=== PATIENT | female | born 2000 | race Caucasian/White ===

== ENCOUNTER 2022-08-19 02:24 | Emergency (ER) | payer BC ==
[~2022-08-19] VITALS: Ht 182.9 cm; Wt 61.2 kg
--- NOTE | 2022-08-19 03:32 | NUR ---
BIBF WITH CC OF SYNCOPAL EPISODE LAST FOR 1 MIN, FRIEND SAID THAT PATIENT MIGHT HAVE SEIZURE. PATIENT IS AAOX4. ABLE TO MAKE NEEDS KNOWN. CLAIMED THAT SHE TOOK MUSHROOMS AT AROUND 8PM AND PER FRIEND +LOC AT 2AM LASTED 1MIN, FRIEND SAID THAT PATIENT MIGHT HAVE SEIZURE. PATIENT FELL BACKWARD AND HIT BACKSIDE OF HEAD IN THE BASIN. NO PAST HX OF SEIZURE. PATIENT CANNOT REMEMBER ANYTHING THAT HAPPENED EXCEPT THAT SHE FELT DIZZY. -SOB, NOT IN CP DISTRESS. PLACED COMFORTABLY IN BED. VITALS CHECKED.
--- NOTE | 2022-08-19 03:35 | NUR ---
URINE SPECIMEN SENT TO LAB
--- NOTE | 2022-08-19 03:45 | NUR ---
ACCUCHECK DONE BS OF 61mg/dl. juice offered
--- NOTE | 2022-08-19 03:50 | NUR ---
EKG DONE, STRIP ATTACHED TO CHART
--- NOTE | 2022-08-19 04:17 | NUR ---
PT SIGNED DISCLAIMER THAT SHE IS NOT AND ON CONTROL PILLS. WILL FF RADIOLOGY FOR CT SCAN
[2022-08-19 06:34] LABS: BASOPHILS % (AUTO) 0.4 % (0.0-2.0); EOSINOPHILS % (AUTO) 0.7 % (0.0-6.0); HEMATOCRIT 38 % (33-45); HEMOGLOBIN 12.9 g/dL (11.5-14.8); LYMPHOCYTES # (AUTO) 1.3 K/uL (0.8-4.8); LYMPHOCYTES % (AUTO) 15.6 % (20.0-44.0); MEAN CORPUSCULAR HGB CONC 34 g/dl (31.0-36.0); MEAN CORPUSCULAR VOLUME 87 fL (82-100); MONOCYTES # (AUTO) 0.3 K/uL (0.1-1.30); MONOCYTES % (AUTO) 3.9 % (2.0-12.0); NEUTROPHILS # (AUTO) 6.5 K/uL (1.8-8.9); NEUTROPHILS % (AUTO) 79.4 % (43.0-81.0); PLATELET COUNT (AUTO) 273 K/uL (150-450); RED BLOOD CELL COUNT(AUTO) 4.36 MIL/uL (4.0-5.2); WHITE BLOOD COUNT (AUTO) 8.1 K/uL (4.3-11.0)
[2022-08-19 06:43] LABS: CALCIUM, SERUM 8.9 mg/dL (8.5-10.1); POTASSIUM 4.1 mmol/L (3.5-5.1)
[2022-08-19 07:14] VITALS: BP 103/61
--- NOTE | 2022-08-19 07:14 | NUR ---
REPORT GIVEN TO JEM SNIDER
--- NOTE | 2022-08-19 07:15 | NUR ---
Patient discharged to home in stable condition. Written and verbal after care instructions given. Patient verbalizes understanding of instruction.
== END 2022-08-19 07:15 | disposition home or self-care (01) ==
LOC: ER 02:31
DX: S09.90XA Unspecified injury of head, initial encounter (principal); R55 Syncope and collapse; E16.2 Hypoglycemia, unspecified; W22.8XXA Striking against or struck by other objects, initial encounter; Y93.89 Activity, other specified; Y92.002 Bathroom of unspecified non-institutional (private) residence as the place of occurrence of the external cause; Y99.9 Unspecified external cause status
CPT/HCPCS: 36415; 70450-TC; 80048-TC; 82962-TC; 84703-TC; 85025-TC